=== PATIENT | male | born 1935 | race American Indian/Alaskan Native ===

== ENCOUNTER 2016-09-11 16:30 | Inpatient (IN) | payer OTHER, BC ==
[~2016-09-11] VITALS: Ht 177.8 cm; Wt 93.5 kg
[~2016-09-11 16:30] MED LIST: ASPIR 8181 MG PO; BACTRIM DS1 TAB PO; COL100 PO; D3 VITAMIN400 IU/ML PO; GLU5 PO; GLU500 PO; HUMI SC; K10 PO; METFORMIN HCL1000 MG PO; TRIBENZOR; TRIBENZOR1 TA4 PO; TRICOR48 M1 PO; XARELTO15 M1 PO; ZOC20 PO
[2016-09-11 19:17] LABS: BASOPHIL % 0.3 % (0-2); PLATELET COUNT 146 x10^3mcL (130-400); RED CELL DISTRIBUTION WIDTH 13.7 % (11.5-14.5)
[2016-09-11 19:34] LABS: ALKALINE PHOSPHATASE 87 U/L (46-116); ALT/SGPT 20 U/L (16-63); AST/SGOT 10 U/L (15-37); CALCIUM 9.7 mg/dL (8.5-10.1); CARBON DIOXIDE 28.1 mmol/L (21-32); CHLORIDE SERUM 99 mmol/L (98-107); CREATININE SERUM 1.4 mg/dL (0.7-1.3); POTASSIUM SERUM 4.7 mmol/L (3.5-5.1); SODIUM SERUM 136 mmol/L (136-145); TOTAL PROTEIN, SERUM 7.7 g/dL (6.4-8.2)
[2016-09-11 19:44] LABS: GLUCOSE SERUM 519 mg/dL (74-106)
[2016-09-11 20:35] LABS: CHOLESTEROL/HDL RATIO 3.4
[2016-09-11 20:43] LABS: T3 TOTAL 0.77 ng/mL
[2016-09-11 20:49] LABS: FREE T4 1.18 ng/dL (0.76-1.46); FREE THYROXINE INDEX 2.8 ug/dL (1.4-4.5); T4(THYROXINE) 8.3 ug/dL (4.7-13.3)
[2016-09-11 20:53] VITALS: BP 148/69
[2016-09-11 21:01] VITALS: Ht 177.8 cm; Wt 93.5 kg
[2016-09-12 01:46] LABS: UA SPECIFIC GRAVITY 1.015 (1.005-1.035); microscopic required? YES; urine erythrocyte TRACE (NEGATIVE)
[2016-09-12 05:59] VITALS: BP 128/76
[2016-09-12 06:05] LABS: BASOPHIL % 0.1 % (0-2); RED CELL DISTRIBUTION WIDTH 13.4 % (11.5-14.5)
[2016-09-12 06:08] LABS: CALCIUM 8.9 mg/dL (8.5-10.1); CHLORIDE SERUM 106 mmol/L (98-107); CREATININE SERUM 1.3 mg/dL (0.7-1.3); GLUCOSE SERUM 357 mg/dL (74-106); MAGNESIUM 2.1 mg/dL (1.8-2.4); PHOSPHOROUS 3.4 mg/dL (2.5-4.9); POTASSIUM SERUM 4.4 mmol/L (3.5-5.1); SODIUM SERUM 140 mmol/L (136-145)
[2016-09-12 06:35] LABS: PLATELET COUNT 120 x10^3mcL (130-400)
[2016-09-12 10:00] VITALS: BP 110/50
[2016-09-12 14:00] VITALS: BP 129/64
[2016-09-12 18:00] VITALS: BP 122/71
[2016-09-12 21:30] VITALS: BP 125/60
[2016-09-13 05:35] VITALS: BP 124/61
[2016-09-13 07:09] LABS: BASOPHIL % 0.2 % (0-2); PLATELET COUNT 137 x10^3mcL (130-400); RED CELL DISTRIBUTION WIDTH 13.9 % (11.5-14.5)
[2016-09-13 07:25] LABS: CALCIUM 8.6 mg/dL (8.5-10.1); CARBON DIOXIDE 24.5 mmol/L (21-32); CHLORIDE SERUM 108 mmol/L (98-107); GLUCOSE SERUM 102 mg/dL (74-106); MAGNESIUM 1.8 mg/dL (1.8-2.4); PHOSPHOROUS 3.2 mg/dL (2.5-4.9); POTASSIUM SERUM 3.6 mmol/L (3.5-5.1); SODIUM SERUM 141 mmol/L (136-145)
[2016-09-13 09:23] VITALS: BP 126/55
[2016-09-13] MEDS ORDERED: XARELTO15 M1 PO (10:03)
[2016-09-13] MEDS ORDERED: LIPI10 PO (10:05)
[2016-09-13] MEDS ORDERED: LEVEMIR100 U/M1 SQ (10:05)
[2016-09-13] MEDS ORDERED: BG MC (10:06)
[2016-09-13 10:51] VITALS: BP 126/55
[2016-09-13] MEDS ORDERED: COLACE100 MG PO (11:24)
[2016-09-13] MEDS ORDERED: NORCO1 TA2 PO (11:24)
== END 2016-09-13 14:38 | disposition home or self-care (01) | DRG 299 ==
LOC: ED 16:30 → DU 19:29 → MU 09-13 06:49 → DU 09-13 06:54 → MU 09-13 13:00
PROVIDERS: Emergency Medicine; ADMIT Family Medicine
DX: I82.433 Acute embolism and thrombosis of popliteal vein, bilateral (principal); N17.0 Acute kidney failure with tubular necrosis; I50.43 Acute on chronic combined systolic (congestive) and diastolic (congestive) heart failure; I82.413 Acute embolism and thrombosis of femoral vein, bilateral; E11.65 Type 2 diabetes mellitus with hyperglycemia; E11.51 Type 2 diabetes mellitus with diabetic peripheral angiopathy without gangrene; I11.0 Hypertensive heart disease with heart failure; E78.5 Hyperlipidemia, unspecified; G89.29 Other chronic pain; M54.9 Dorsalgia, unspecified; I48.91 Unspecified atrial fibrillation; N40.0 Benign prostatic hyperplasia without lower urinary tract symptoms; Z79.82 Long term (current) use of aspirin; Z68.29 Body mass index [BMI] 29.0-29.9, adult; Z79.01 Long term (current) use of anticoagulants; Z95.5 Presence of coronary angioplasty implant and graft; Z79.84 Long term (current) use of oral hypoglycemic drugs; Z85.828 Personal history of other malignant neoplasm of skin; Z86.718 Personal history of other venous thrombosis and embolism; Z91.14 Patient's other noncompliance with medication regimen
CPT/HCPCS: 36600; 82962; 83880; 84439; J1815; J7030; Q0092

== ENCOUNTER 2017-06-09 17:15 | Inpatient (IN) | payer OTHER, BC ==
[~2017-06-09] VITALS: Ht 175.3 cm; Wt 87.8 kg
[~2017-06-09 17:15] MED LIST changes: +BG MC; +COLACE100 MG PO; +LEVEMIR100 U/M1 SQ; +LIPI10 PO; +NORCO1 TA2 PO
[2017-06-09 18:17] LABS: BASOPHIL % 0.2 % (0-2); PLATELET COUNT 166 x10^3mcL (130-400)
[2017-06-09 18:31] LABS: CALCIUM 9.9 mg/dL (8.5-10.1); CARBON DIOXIDE 26.4 mmol/L (21-32); CHLORIDE SERUM 107 mmol/L (98-107); CREATININE SERUM 1.2 mg/dL (0.7-1.3); GLUCOSE SERUM 293 mg/dL (74-106); POTASSIUM SERUM 4.5 mmol/L (3.5-5.1); SODIUM SERUM 143 mmol/L (136-145)
[2017-06-09 18:36] LABS: ALBUMIN 3.9 g/dL (3.4-5.0); ALKALINE PHOSPHATASE 87 U/L (46-116); ALT/SGPT 20 U/L (16-63); AST/SGOT 16 U/L (15-37); BILIRUBIN TOTAL 0.91 mg/dL (0.20-1.00); TOTAL PROTEIN, SERUM 7.6 g/dL (6.4-8.2)
[2017-06-09] MEDS ORDERED: NOR10 PO (20:04)
[2017-06-09] MEDS ORDERED: FLO4 PO (20:05)
[2017-06-09] MEDS ORDERED: LASIX40 MG PO (20:05)
[2017-06-09 21:16] VITALS: BP 131/65
[2017-06-09 21:29] LABS: MAGNESIUM 2.1 mg/dL (1.8-2.4); PHOSPHOROUS 3.5 mg/dL (2.5-4.9)
[2017-06-09 21:33] LABS: T3 TOTAL 1.05 ng/mL
[2017-06-09 21:36] LABS: FREE T4 1.35 ng/dL (0.76-1.46); FREE THYROXINE INDEX 3.4 ug/dL (1.4-4.5); T4(THYROXINE) 8.6 ug/dL (4.7-13.3)
[2017-06-09 22:39] VITALS: BP 131/65
[2017-06-10 00:24] LABS: UA SPECIFIC GRAVITY <=1.005 (1.005-1.035); microscopic required? YES; urine erythrocyte TRACE (NEGATIVE)
[2017-06-10 05:02] VITALS: BP 122/58
[2017-06-10 06:29] LABS: CALCIUM 9.5 mg/dL (8.5-10.1); CARBON DIOXIDE 29.3 mmol/L (21-32); CHLORIDE SERUM 109 mmol/L (98-107); CREATININE SERUM 1.2 mg/dL (0.7-1.3); GLUCOSE SERUM 61 mg/dL (74-106); PHOSPHOROUS 4.1 mg/dL (2.5-4.9); POTASSIUM SERUM 3.8 mmol/L (3.5-5.1); SODIUM SERUM 144 mmol/L (136-145)
[2017-06-10 06:58] LABS: BASOPHIL % 0.3 % (0-2); PLATELET COUNT 162 x10^3mcL (130-400)
[2017-06-10 07:08] LABS: RED CELL DISTRIBUTION WIDTH 15.1 % (11.5-14.5)
[2017-06-10 09:47] VITALS: BP 104/46
[2017-06-10 13:43] VITALS: BP 112/60
[2017-06-10 17:56] VITALS: BP 105/49
[2017-06-10 21:49] VITALS: BP 113/42
[2017-06-11] VITALS (10 sets, daily range): BP systolic 94–125; BP diastolic 36–60
[2017-06-11 06:46] LABS: BASOPHIL % 0.3 % (0-2); PLATELET COUNT 144 x10^3mcL (130-400)
[2017-06-11 06:47] LABS: CALCIUM 9.1 mg/dL (8.5-10.1); CHLORIDE SERUM 109 mmol/L (98-107); CREATININE SERUM 1.4 mg/dL (0.7-1.3); GLUCOSE SERUM 179 mg/dL (74-106); MAGNESIUM 1.9 mg/dL (1.8-2.4); PHOSPHOROUS 4.7 mg/dL (2.5-4.9); SODIUM SERUM 144 mmol/L (136-145)
[2017-06-11 16:56] LABS: TOTAL PROTEIN, SERUM 3.9 g/dL (6.4-8.2)
[2017-06-11 17:36] LABS: APPEARANCE FLUID CLEAR; COLOR FLUID YELLOW; LYMPHOCYTE FLUID 45 %; MONOCYTE FLUID 5 %; RBC FLUID 53 /cumm; SOURCE FLUID THORACENTESIS; WBC FLUID 261 /cumm
[2017-06-11 19:36] LABS: SOURCE FLUID THORACENTESIS
[2017-06-12 05:42] VITALS: BP 109/50
[2017-06-12 06:10] LABS: BASOPHIL % 0.2 % (0-2); PLATELET COUNT 145 x10^3mcL (130-400)
[2017-06-12 06:29] LABS: RED CELL DISTRIBUTION WIDTH 15.3 % (11.5-14.5)
[2017-06-12 06:31] LABS: CALCIUM 8.9 mg/dL (8.5-10.1); CARBON DIOXIDE 27.2 mmol/L (21-32); CHLORIDE SERUM 109 mmol/L (98-107); CREATININE SERUM 1.6 mg/dL (0.7-1.3); GLUCOSE SERUM 124 mg/dL (74-106); POTASSIUM SERUM 4.1 mmol/L (3.5-5.1); SODIUM SERUM 145 mmol/L (136-145)
[2017-06-12 08:30] VITALS: BP 126/47
[2017-06-12] MEDS ORDERED: XARELTO20 M1 PO (09:37)
[2017-06-12] MEDS ORDERED: LEVAQUIN750 MG PO (11:40)
[2017-06-12] MEDS ORDERED: CLINDAMYCIN HC300 MG PO (11:44)
[2017-06-12] MEDS ORDERED: METOPROLOL TART25 M1 PO (11:50)
[2017-06-12] MEDS ORDERED: ZES5 PO (11:52)
[2017-06-12] MEDS ORDERED: ECO81 PO (11:53)
[2017-06-12 12:20] VITALS: BP 123/51
[2017-06-12] MEDS ORDERED: THERA TABS1 TAB PO (13:43)
[2017-06-12 14:14] VITALS: BP 123/51
[2017-06-12] MEDS ORDERED: LAC PO (14:16)
== END 2017-06-12 15:00 | disposition home or self-care (01) | DRG 177 ==
LOC: ED 17:15 → DU 20:00
PROVIDERS: Emergency Medicine; ADMIT Family Medicine
PROC: 0W993ZZ Drainage of Right Pleural Cavity, Percutaneous Approach (ICD-10-PCS; principal; 2017-06-11)
DX: J69.0 Pneumonitis due to inhalation of food and vomit (principal); N17.0 Acute kidney failure with tubular necrosis; I50.43 Acute on chronic combined systolic (congestive) and diastolic (congestive) heart failure; J90 Pleural effusion, not elsewhere classified; I82.512 Chronic embolism and thrombosis of left femoral vein; I82.532 Chronic embolism and thrombosis of left popliteal vein; I11.0 Hypertensive heart disease with heart failure; E11.65 Type 2 diabetes mellitus with hyperglycemia; E11.51 Type 2 diabetes mellitus with diabetic peripheral angiopathy without gangrene; T14.90XS Injury, unspecified, sequela; M79.2 Neuralgia and neuritis, unspecified; G89.4 Chronic pain syndrome; E78.5 Hyperlipidemia, unspecified; E03.9 Hypothyroidism, unspecified; Z79.4 Long term (current) use of insulin; Z68.28 Body mass index [BMI] 28.0-28.9, adult; Z79.01 Long term (current) use of anticoagulants; Z79.84 Long term (current) use of oral hypoglycemic drugs; V89.2XXS Person injured in unspecified motor-vehicle accident, traffic, sequela
CPT/HCPCS: 32555; 82947; 82962; 83880; 84439; 94150; C1729; J1815; J1940; J2543; J3490; J7030; J7620; Q0092; Q9967

== ENCOUNTER 2017-08-05 16:24 | Inpatient (IN) | payer OTHER, BC ==
[~2017-08-05] VITALS: Ht 175.3 cm; Wt 80.8 kg
[~2017-08-05 16:24] MED LIST changes: +CLINDAMYCIN HC300 MG PO; +ECO81 PO; +FLO4 PO; +LAC PO; +LASIX40 MG PO; +LEVAQUIN750 MG PO; +METOPROLOL TART25 M1 PO; +NOR10 PO; +THERA TABS1 TAB PO; +XARELTO20 M1 PO; +ZES5 PO
[2017-08-05 16:56] VITALS: Ht 175.3 cm; Wt 80.8 kg
[2017-08-05 18:12] LABS: BASOPHIL % 0.4 % (0-2); PLATELET COUNT 128 x10^3mcL (130-400); RED CELL DISTRIBUTION WIDTH 14.6 % (11.5-14.5)
[2017-08-05 18:21] LABS: CALCIUM 9.5 mg/dL (8.5-10.1); CARBON DIOXIDE 29.7 mmol/L (21-32); CHLORIDE SERUM 103 mmol/L (98-107); CREATININE SERUM 1.1 mg/dL (0.7-1.3); GLUCOSE SERUM 266 mg/dL (74-106); POTASSIUM SERUM 5.2 mmol/L (3.5-5.1); SODIUM SERUM 138 mmol/L (136-145)
[2017-08-05 18:25] LABS: ALBUMIN 3.6 g/dL (3.4-5.0); ALKALINE PHOSPHATASE 76 U/L (46-116); ALT/SGPT 46 U/L (16-63); AST/SGOT 25 U/L (15-37); BILIRUBIN TOTAL 0.9 mg/dL (0.20-1.00); TOTAL PROTEIN, SERUM 7.6 g/dL (6.4-8.2)
[2017-08-05] MEDS ORDERED: GABAPENTIN100 M2 PO (20:31)
[2017-08-05] MEDS ORDERED: PREDNISONE20 MG PO (20:35)
[2017-08-05 20:37] LABS: T3 TOTAL 0.81 ng/mL
[2017-08-05] MEDS ORDERED: BANOPHEN25 MG PO (20:38)
[2017-08-05] MEDS ORDERED: VITAMIN D32000 I2 PO (20:38)
[2017-08-05 20:39] LABS: FREE T4 1.26 ng/dL (0.76-1.46); FREE THYROXINE INDEX 3.2 ug/dL (1.4-4.5); T4(THYROXINE) 8.8 ug/dL (4.7-13.3)
[2017-08-05] MEDS ORDERED: LYRICA50 M1 PO (20:39)
[2017-08-05] MEDS ORDERED: FLO4 PO (20:39)
[2017-08-05] MEDS ORDERED: SULFAMETHOXAZOL1 TA3 PO (20:40)
[2017-08-05 21:04] LABS: CHOLESTEROL/HDL RATIO 2.9; MAGNESIUM 2.2 mg/dL (1.8-2.4); PHOSPHOROUS 3.5 mg/dL (2.5-4.9)
[2017-08-05 21:15] VITALS: BP 149/70
[2017-08-05 23:50] VITALS: BP 149/70
[2017-08-06 05:30] VITALS: BP 115/64
[2017-08-06 05:39] LABS: UA SPECIFIC GRAVITY >=1.030 (1.005-1.035); microscopic required? YES; urine erythrocyte TRACE (NEGATIVE)
[2017-08-06 05:53] LABS: BASOPHIL % 0.1 % (0-2); RED CELL DISTRIBUTION WIDTH 14.3 % (11.5-14.5)
[2017-08-06 06:00] LABS: PLATELET COUNT 116 x10^3mcL (130-400)
[2017-08-06 06:25] LABS: CALCIUM 8.6 mg/dL (8.5-10.1); CARBON DIOXIDE 27.3 mmol/L (21-32); CHLORIDE SERUM 105 mmol/L (98-107); GLUCOSE SERUM 193 mg/dL (74-106); POTASSIUM SERUM 4.9 mmol/L (3.5-5.1); SODIUM SERUM 139 mmol/L (136-145)
[2017-08-06 10:30] VITALS: BP 140/66
[2017-08-06 14:49] VITALS: BP 100/47
[2017-08-06 17:06] VITALS: BP 127/61
[2017-08-06 17:42] LABS: APPEARANCE FLUID HAZY; COLOR FLUID YELLOW; LYMPHOCYTE FLUID 80 %; RBC FLUID 38 /cumm; SOURCE FLUID PLEURAL; WBC FLUID 266 /cumm
[2017-08-06 20:50] VITALS: BP 111/49
[2017-08-07 04:33] VITALS: BP 98/49
[2017-08-07 06:25] LABS: BASOPHIL % 0.2 % (0-2); RED CELL DISTRIBUTION WIDTH 14.5 % (11.5-14.5)
[2017-08-07 06:33] LABS: PLATELET COUNT 122 x10^3mcL (130-400)
[2017-08-07 08:11] LABS: CALCIUM 8.8 mg/dL (8.5-10.1); CARBON DIOXIDE 25.8 mmol/L (21-32); CHLORIDE SERUM 104 mmol/L (98-107); CREATININE SERUM 1.4 mg/dL (0.7-1.3); GLUCOSE SERUM 98 mg/dL (74-106); POTASSIUM SERUM 4.2 mmol/L (3.5-5.1); SODIUM SERUM 139 mmol/L (136-145)
[2017-08-07 09:44] VITALS: BP 91/54
[2017-08-07 12:54] VITALS: BP 120/45
[2017-08-07] MEDS ORDERED: LEVAQUIN750 MG PO (15:40)
[2017-08-07] MEDS ORDERED: CLINDAMYCIN HC300 MG PO (15:44)
[2017-08-07 16:15] VITALS: BP 120/45
== END 2017-08-07 17:11 | disposition home or self-care (01) | DRG 177 ==
LOC: ED 16:24 → DU 19:54
PROVIDERS: Emergency Medicine Emergency Medical Services; Family Medicine
PROC: 0W993ZZ Drainage of Right Pleural Cavity, Percutaneous Approach (ICD-10-PCS; principal; 2017-08-06)
DX: J69.0 Pneumonitis due to inhalation of food and vomit (principal); N17.0 Acute kidney failure with tubular necrosis; I50.31 Acute diastolic (congestive) heart failure; I42.0 Dilated cardiomyopathy; J90 Pleural effusion, not elsewhere classified; J93.83 Other pneumothorax; I25.10 Atherosclerotic heart disease of native coronary artery without angina pectoris; I11.0 Hypertensive heart disease with heart failure; I48.2 Chronic atrial fibrillation; E87.5 Hyperkalemia; E11.65 Type 2 diabetes mellitus with hyperglycemia; M54.9 Dorsalgia, unspecified; M79.2 Neuralgia and neuritis, unspecified; G89.29 Other chronic pain; E78.5 Hyperlipidemia, unspecified; Z90.49 Acquired absence of other specified parts of digestive tract; Z82.49 Family history of ischemic heart disease and other diseases of the circulatory system; Z86.718 Personal history of other venous thrombosis and embolism; Z79.01 Long term (current) use of anticoagulants; Z79.82 Long term (current) use of aspirin; Z79.4 Long term (current) use of insulin; Z79.891 Long term (current) use of opiate analgesic; Z68.26 Body mass index [BMI] 26.0-26.9, adult
CPT/HCPCS: 32555; 82962; 83880; 84439; 85378; 88344; 94150; C1729; J1815; J1956; J3490; J7030; J7620; Q0092; Q9967

== ENCOUNTER 2017-09-01 16:03 | Inpatient (IN) | payer OTHER, BC ==
[~2017-09-01] VITALS: Ht 175.3 cm; Wt 84.4 kg
[~2017-09-01 16:03] MED LIST changes: +BANOPHEN25 MG PO; +GABAPENTIN100 M2 PO; +LYRICA50 M1 PO; +PREDNISONE20 MG PO; +SULFAMETHOXAZOL1 TA3 PO; +VITAMIN D32000 I2 PO
[2017-09-01 16:05] VITALS: Ht 175.3 cm; Wt 84.4 kg
[2017-09-01 17:44] LABS: BASOPHIL % 0.1 % (0-2); PLATELET COUNT 158 x10^3mcL (130-400)
[2017-09-01 17:49] LABS: RED CELL DISTRIBUTION WIDTH 15.3 % (11.5-14.5)
[2017-09-01 17:51] LABS: CALCIUM 9.4 mg/dL (8.5-10.1); CARBON DIOXIDE 26.8 mmol/L (21-32); CHLORIDE SERUM 108 mmol/L (98-107); GLUCOSE SERUM 61 mg/dL (74-106); SODIUM SERUM 146 mmol/L (136-145)
[2017-09-01 17:57] LABS: ALBUMIN 3.4 g/dL (3.4-5.0); ALKALINE PHOSPHATASE 56 U/L (46-116); ALT/SGPT 21 U/L (16-63); AST/SGOT 11 U/L (15-37); BILIRUBIN TOTAL 0.6 mg/dL (0.20-1.00); TOTAL PROTEIN, SERUM 7.3 g/dL (6.4-8.2)
[2017-09-01] MEDS ORDERED: ZESTRIL5 MG (19:27)
[2017-09-01] MEDS ORDERED: TOPROL XL25 MG (19:27)
[2017-09-01] MEDS ORDERED: MULTIVITAMIN1 SGL (19:28)
[2017-09-01] MEDS ORDERED: VITAMIN D32000 I2 (19:28)
[2017-09-01] MEDS ORDERED: FLO4 (19:28)
[2017-09-01 20:41] LABS: CHOLESTEROL/HDL RATIO 3.3; MAGNESIUM 2.1 mg/dL (1.8-2.4); PHOSPHOROUS 3.2 mg/dL (2.5-4.9)
[2017-09-01 20:43] LABS: FREE T4 1.17 ng/dL (0.76-1.46); FREE THYROXINE INDEX 2.5 ug/dL (1.4-4.5); T4(THYROXINE) 7.8 ug/dL (4.7-13.3)
[2017-09-01 21:03] VITALS: BP 99/69
[2017-09-01] MEDS ORDERED: LEVEMIR100 U/M1 SQ (23:55)
[2017-09-02] VITALS (9 sets, daily range): BP systolic 96–143; BP diastolic 48–99
[2017-09-02 06:22] LABS: BASOPHIL % 0.1 % (0-2); PLATELET COUNT 136 x10^3mcL (130-400)
[2017-09-02 06:35] LABS: CARBON DIOXIDE 27.8 mmol/L (21-32); CHLORIDE SERUM 106 mmol/L (98-107); CREATININE SERUM 0.9 mg/dL (0.7-1.3); GLUCOSE SERUM 162 mg/dL (74-106); MAGNESIUM 1.9 mg/dL (1.8-2.4); PHOSPHOROUS 3.3 mg/dL (2.5-4.9); POTASSIUM SERUM 3.9 mmol/L (3.5-5.1); SODIUM SERUM 142 mmol/L (136-145)
[2017-09-02 06:39] LABS: RED CELL DISTRIBUTION WIDTH 15.3 % (11.5-14.5)
[2017-09-02 10:39] LABS: UA SPECIFIC GRAVITY >=1.030 (1.005-1.035); microscopic required? YES; urine erythrocyte TRACE (NEGATIVE)
[2017-09-02 17:37] LABS: SOURCE FLUID PLEURAL
[2017-09-02 19:46] LABS: APPEARANCE FLUID HAZY; COLOR FLUID YELLOW; RBC FLUID 390 /cumm; WBC FLUID 63 /cumm
[2017-09-02 19:47] LABS: LYMPHOCYTE FLUID 78 %; MONOCYTE FLUID 12 %
[2017-09-03 06:13] VITALS: BP 113/51
[2017-09-03 06:39] LABS: BASOPHIL % 0.2 % (0-2); PLATELET COUNT 133 x10^3mcL (130-400)
[2017-09-03 06:49] LABS: RED CELL DISTRIBUTION WIDTH 15.2 % (11.5-14.5)
[2017-09-03 07:25] LABS: CALCIUM 9.4 mg/dL (8.5-10.1); CARBON DIOXIDE 26.6 mmol/L (21-32); CHLORIDE SERUM 105 mmol/L (98-107); CREATININE SERUM 1.1 mg/dL (0.7-1.3); GLUCOSE SERUM 85 mg/dL (74-106); MAGNESIUM 1.8 mg/dL (1.8-2.4); PHOSPHOROUS 4.5 mg/dL (2.5-4.9); POTASSIUM SERUM 4.6 mmol/L (3.5-5.1); SODIUM SERUM 142 mmol/L (136-145)
[2017-09-03 09:50] VITALS: BP 109/53
[2017-09-03 13:48] VITALS: BP 110/58
[2017-09-03 17:22] VITALS: BP 110/49
[2017-09-03 20:59] VITALS: BP 115/51
[2017-09-04 04:39] VITALS: BP 91/43
[2017-09-04 06:09] LABS: BASOPHIL % 0.5 % (0-2)
[2017-09-04 06:19] LABS: CALCIUM 9.3 mg/dL (8.5-10.1); CARBON DIOXIDE 27.5 mmol/L (21-32); CHLORIDE SERUM 106 mmol/L (98-107); CREATININE SERUM 1.5 mg/dL (0.7-1.3); GLUCOSE SERUM 86 mg/dL (74-106); POTASSIUM SERUM 4.3 mmol/L (3.5-5.1); SODIUM SERUM 142 mmol/L (136-145)
[2017-09-04 06:40] LABS: PLATELET COUNT 115 x10^3mcL (130-400); RED CELL DISTRIBUTION WIDTH 15.1 % (11.5-14.5)
[2017-09-04 09:40] VITALS: BP 104/43
[2017-09-04 12:49] VITALS: BP 126/65
[2017-09-04 14:00] LABS: CALCIUM 8.7 mg/dL (8.5-10.1); CHLORIDE SERUM 105 mmol/L (98-107); CREATININE SERUM 1.5 mg/dL (0.7-1.3); GLUCOSE SERUM 237 mg/dL (74-106); POTASSIUM SERUM 4.1 mmol/L (3.5-5.1); SODIUM SERUM 139 mmol/L (136-145)
[2017-09-04 16:42] VITALS: BP 114/54
[2017-09-04 20:44] VITALS: BP 112/56
[2017-09-05 05:38] VITALS: BP 137/50
[2017-09-05 06:51] LABS: CALCIUM 8.9 mg/dL (8.5-10.1); CARBON DIOXIDE 24.9 mmol/L (21-32); CHLORIDE SERUM 107 mmol/L (98-107); CREATININE SERUM 1.2 mg/dL (0.7-1.3); GLUCOSE SERUM 176 mg/dL (74-106); PHOSPHOROUS 4.1 mg/dL (2.5-4.9); POTASSIUM SERUM 5.2 mmol/L (3.5-5.1); SODIUM SERUM 137 mmol/L (136-145)
[2017-09-05 07:17] LABS: BASOPHIL % 0.5 % (0-2)
[2017-09-05 07:37] LABS: PLATELET COUNT 109 x10^3mcL (130-400); RED CELL DISTRIBUTION WIDTH 14.8 % (11.5-14.5)
[2017-09-05 09:13] VITALS: BP 110/56
[2017-09-05 12:16] VITALS: BP 112/44
[2017-09-05] MEDS ORDERED: LEVAQUIN750 MG PO (17:17)
[2017-09-05] MEDS ORDERED: CLINDAMYCIN HC300 MG PO (17:18)
[2017-09-05] MEDS ORDERED: LEVOFLOXACIN I150 ML IV (17:37)
[2017-09-05] MEDS ORDERED: NOVAPLUS CLINDA1 SO1 IV (17:37)
[2017-09-05 17:59] VITALS: BP 125/57
[2017-09-05 18:52] VITALS: BP 125/57
[2017-09-05 20:50] VITALS: BP 106/48
== END 2017-09-05 21:00 | DRG 177 ==
LOC: ED 16:03 → DU 19:14
PROVIDERS: Emergency Medicine; Family Medicine
PROC: 0W993ZZ Drainage of Right Pleural Cavity, Percutaneous Approach (ICD-10-PCS; 2017-09-02)
PROC: 0W993ZZ Drainage of Right Pleural Cavity, Percutaneous Approach (ICD-10-PCS; principal; 2017-09-04)
DX: J69.0 Pneumonitis due to inhalation of food and vomit (principal); N17.0 Acute kidney failure with tubular necrosis; J90 Pleural effusion, not elsewhere classified; E87.0 Hyperosmolality and hypernatremia; E44.0 Moderate protein-calorie malnutrition; I50.42 Chronic combined systolic (congestive) and diastolic (congestive) heart failure; J93.9 Pneumothorax, unspecified; D68.59 Other primary thrombophilia; E11.65 Type 2 diabetes mellitus with hyperglycemia; Z91.19 Patient's noncompliance with other medical treatment and regimen; E11.51 Type 2 diabetes mellitus with diabetic peripheral angiopathy without gangrene; Z68.27 Body mass index [BMI] 27.0-27.9, adult; I11.0 Hypertensive heart disease with heart failure; R06.03 Acute respiratory distress; I73.9 Peripheral vascular disease, unspecified; F41.1 Generalized anxiety disorder; I25.10 Atherosclerotic heart disease of native coronary artery without angina pectoris; D64.9 Anemia, unspecified; E78.5 Hyperlipidemia, unspecified
CPT/HCPCS: 32555; 82962; 83880; 84439; 88344; 94150; A7042; C1729; J1815; J1956; J2001; J3490; J7030; Q0092; Q9967